=== PATIENT | female | born 1965 | race Two or more races ===

== ENCOUNTER 2022-02-18 10:45 | Inpatient (IN) | payer OTHER ==
[~2022-02-18] VITALS: Ht 147.3 cm; Wt 50.8 kg
[2022-02-18] MEDS ORDERED: CELEXA40 MG PO (12:56)
[2022-02-18] MEDS ORDERED: CLONAZEPAM0.5 MG PO (12:57)
[2022-02-18] MEDS ORDERED: ESTAZOLAM2 MG PO (12:57)
[2022-02-20] MEDS ORDERED: GABAPENTIN300 M2 (16:35)
[2022-02-20] MEDS ORDERED: DICLOFENAC POTA50 MG (16:35)
[2022-02-20] MEDS ORDERED: DICYCLOMINE HCL20 MG (16:36)
[2022-02-20] MEDS ORDERED: VITAMIN D3250 MCG (16:36)
[2022-02-20] MEDS ORDERED: GENTLE LAXATIVE5 MG (16:36)
[2022-02-20] MEDS ORDERED: MIRALAX510 GM (16:36)
[2022-02-20] MEDS ORDERED: OMEPRAZOLE40 MG (16:36)
[2022-02-20] MEDS ORDERED: ATORVASTATIN CA20 MG (16:36)
[2022-02-20] MEDS ORDERED: EMERGEN-C 1,01000 MG (16:36)
[2022-02-20] MEDS ORDERED: PANTOPRAZOLE SO40 MG (16:36)
[2022-02-20] MEDS ORDERED: LATANOPROST2.5 ML (16:36)
[2022-03-03] MEDS ORDERED: SIMETHICONE80 MG PO (10:45)
== END 2022-03-03 14:56 | disposition home or self-care (01) | DRG 330 ==
LOC: O/R 02-20 09:11 → SURH 02-20 10:30
PROVIDERS: ADMIT Surgery; ATTEND Surgery
PROC: 0DBP4ZZ Excision of Rectum, Percutaneous Endoscopic Approach (ICD-10-PCS; 2022-02-20)
PROC: 0DNW4ZZ Release Peritoneum, Percutaneous Endoscopic Approach (ICD-10-PCS; 2022-02-20)
PROC: 0DQ84ZZ Repair Small Intestine, Percutaneous Endoscopic Approach (ICD-10-PCS; 2022-02-20)
PROC: 0DTN4ZZ Resection of Sigmoid Colon, Percutaneous Endoscopic Approach (ICD-10-PCS; principal; 2022-02-20 10:30)
PROC: 02HV33Z Insertion of Infusion Device into Superior Vena Cava, Percutaneous Approach (ICD-10-PCS; 2022-02-23)
DX: K57.20 Diverticulitis of large intestine with perforation and abscess without bleeding (principal); K56.7 Ileus, unspecified; K91.89 Other postprocedural complications and disorders of digestive system; K59.09 Other constipation; E87.6 Hypokalemia; R10.32 Left lower quadrant pain; N73.6 Female pelvic peritoneal adhesions (postinfective); N99.4 Postprocedural pelvic peritoneal adhesions; E78.5 Hyperlipidemia, unspecified; M79.7 Fibromyalgia; Z20.822 Contact with and (suspected) exposure to COVID-19